=== PATIENT | male | born 1965 | race Caucasian/White ===

== ENCOUNTER 2018-05-05 17:09 | Emergency (ER) | payer OTHER ==
[~2018-05-05] VITALS: Ht 180.3 cm; Wt 63.3 kg
[~2018-05-05 17:09] MED LIST: ALBUTEROL SULF8.5 GM IH; ALEVE220 MG PO; FLEXERIL10 MG PO; FLEXERIL5 MG PO; HYDROCODON-ACE1 EAC7 PO; MOTRIN800 MG PO; OXYCODONE HCL5 MG PO; PEN-VEE K,VEET500 MG PO; PEPTO BISMOL240 ML PO; PERCOCET 5/31 TABLET PO; PREDNISONE10 M1 PO; ULTRAM50 MG PO; ZITHROMAX Z-PA250 MG PO
[2018-05-05 18:28] LABS: HEMOGLOBIN 12.7 G/DL (12.5-16.6); MCH 31.7 PG (29.0-34.0); MCHC 34.3 G/DL (30.0-36.0); MCV 92.3 FL (86-99); PLATELET COUNT 335 K/uL (156-360); RBC DIS.WIDTH-CV 12.9 % (11.8-14.6); RBC DIS.WIDTH-SD 43.7 % (39-53); RED BLOOD COUNT 4.01 M/uL (4.00-5.50); WHITE BLOOD COUNT 8.5 K/uL (4.1-10.2)
[2018-05-05 18:39] LABS: ALBUMIN 4.4 g/dL (3.2-4.8); CHLORIDE 104 mEq/L (99-109); POTASSIUM 3.8 mEq/L (3.7-5.4); SODIUM 137 mEq/L (136-147)
[2018-05-05 18:42] LABS: GLUCOSE 84 mg/dL (70-99)
[2018-05-05 18:44] LABS: TOTAL BILIRUBIN 0.4 mg/dL (0.0-1.0)
[2018-05-05 18:45] LABS: ALKALINE PHOSPHATASE 52 IU/L (3-129); CREATININE 0.8 mg/dL (0.6-1.3); GFR ESTIMATE (CALCULATED) > 59 mL/min/ (58.99-99999)
[2018-05-05 18:46] LABS: UREA NITROGEN (BUN) 7 mg/dL (9-23)
[2018-05-05 18:47] LABS: AST (GOT) 25 IU/L (2-34)
[2018-05-05 18:48] LABS: ALT (GPT) 26 IU/L (3-49)
[2018-05-05 20:06] LABS: APPEARANCE CLEAR ((CLEAR)); BILIRUBIN NEGATIVE; BLOOD NEGATIVE; COLOR STRAW ((YELLOW)); GLUCOSE (STRIP) NEGATIVE; KETONES NEGATIVE; LEUKOCYTES NEGATIVE; NITRITE NEGATIVE; PROTEIN (STRIP) NEGATIVE; SPECIFIC GRAVITY 1.004 (1.000-1.030); UCUL ADDED? NO; UROBILINOGEN 0.2 MG/DL (0.2-1.0)
[2018-05-05] MEDS ORDERED: MOTRIN600 MG PO (21:00)
[2018-05-05] MEDS ORDERED: ULTRAM50 MG PO (21:00)
[2018-05-05 21:10] VITALS: BP 121/83
== END 2018-05-05 21:10 | disposition home or self-care (01) ==
LOC: EME 17:09
PROVIDERS: Nurse Practitioner Family
DX: K40.90 Unilateral inguinal hernia, without obstruction or gangrene, not specified as recurrent (principal); J44.9 Chronic obstructive pulmonary disease, unspecified; F17.200 Nicotine dependence, unspecified, uncomplicated; F41.9 Anxiety disorder, unspecified
CPT/HCPCS: 76882; 80053; 81003; 85027; 99281; 99285; J7030

== ENCOUNTER → 2018-05-13 | Outpatient (CLI) | payer OTHER ==
[~2018-05-13] MED LIST changes: +MOTRIN600 MG PO
== END | disposition home or self-care (01) ==
LOC: CDC
DX: Z01.810 Encounter for preprocedural cardiovascular examination (principal); K40.90 Unilateral inguinal hernia, without obstruction or gangrene, not specified as recurrent
CPT/HCPCS: 93000

== ENCOUNTER 2018-05-18 09:21 | Day surgery (SDC) | payer OTHER ==
[~2018-05-18] VITALS: Ht 180.3 cm; Wt 63.3 kg
[2018-05-18] MEDS ORDERED: TYLENOL EXTRA500 MG PO (10:00)
[2018-05-18 10:01] VITALS: BP 149/82
[2018-05-18] MEDS ORDERED: COLACE100 MG PO (13:34)
[2018-05-18] MEDS ORDERED: ROXICODONE5 MG PO (13:34)
[2018-05-18 16:16] VITALS: BP 150/77
[2018-05-18 17:17] VITALS: BP 130/60
== END 2018-05-18 17:25 | disposition home or self-care (01) ==
LOC: SDC
PROC: 0YU64JZ Supplement Left Inguinal Region with Synthetic Substitute, Percutaneous Endoscopic Approach (ICD-10-PCS; principal; 2018-05-18)
DX: K40.90 Unilateral inguinal hernia, without obstruction or gangrene, not specified as recurrent (principal); J44.9 Chronic obstructive pulmonary disease, unspecified; K21.9 Gastro-esophageal reflux disease without esophagitis; J30.2 Other seasonal allergic rhinitis; D47.3 Essential (hemorrhagic) thrombocythemia; Z87.891 Personal history of nicotine dependence; Z80.8 Family history of malignant neoplasm of other organs or systems
CPT/HCPCS: C1727; C1781; J0131; J0690; J1100; J1170; J1885; J2250; J2405; J2710; J2765; J3010; J7643

== ENCOUNTER 2018-06-30 10:51 | Emergency (ER) | payer OTHER ==
[~2018-06-30] VITALS: Ht 180.3 cm; Wt 66.8 kg
[~2018-06-30 10:51] MED LIST changes: +COLACE100 MG PO; +ROXICODONE5 MG PO; +TYLENOL EXTRA500 MG PO
[2018-06-30] MEDS ORDERED: KEFLEX500 MG PO (11:46)
[2018-06-30] MEDS ORDERED: MOTRIN800 MG PO (11:46)
[2018-06-30 12:55] VITALS: BP 134/81
== END 2018-06-30 12:55 | disposition home or self-care (01) ==
LOC: EME 10:51
PROC: 3E0234Z Introduction of Serum, Toxoid and Vaccine into Muscle, Percutaneous Approach (ICD-10-PCS; principal; 2018-06-30)
DX: S61.441A Puncture wound with foreign body of right hand, initial encounter (principal); W29.4XXA Contact with nail gun, initial encounter; W45.0XXA Nail entering through skin, initial encounter; Y99.0 Civilian activity done for income or pay; Z23 Encounter for immunization
CPT/HCPCS: 73130; 99281; 99283; S0020